=== PATIENT | male | born 1945 | race Hispanic/Latino ===

== ENCOUNTER → 2018-03-28 | Outpatient (CLI) | payer MEDICARE ==
[~2018-03-28] MED LIST: AMLO5TAB7 PO; ASPI-555 PO; DONE10TA36 PO; DOXA8TAB81 PO; FINA5TAB41 PO; LISI-617 PO; LOVA10TA2 PO; OMEP40CA37 PO; REGADENOSON 0.4 MG/5 ML PF SYG IVP SCH; SERT25TA5 PO
== END | disposition home or self-care (01) ==
LOC: SHCH 09:21
PROVIDERS: ATTEND Internal Medicine Cardiovascular Disease
DX: I25.10 Atherosclerotic heart disease of native coronary artery without angina pectoris (principal)
CPT/HCPCS: 78452; 93017; 96374; A9500 ×2; J2785